=== PATIENT | female | born 1995 | race Caucasian/White ===

== ENCOUNTER 2023-01-05 12:39 | Emergency (ER) | payer BC, SELFPAY | END 2023-01-05 13:39 | disposition left against medical advice (07) | LOC: CSHERS 12:39 | DX: Z53.21 Procedure and treatment not carried out due to patient leaving prior to being seen by health care provider (principal) ==

== ENCOUNTER 2023-12-28 12:23 | Day surgery (SDC) | payer BC ==
[2023-12-28] MEDS ORDERED: hydrALAZINE 20 MG/ML VIAL SLOW IVP PRN (13:23)
== END 2023-12-28 14:30 | disposition home or self-care (01) ==
LOC: CSHLD/OP 12:23
PROVIDERS: ATTEND Obstetrics & Gynecology
DX: O36.8130 Decreased fetal movements, third trimester, not applicable or unspecified (principal); Z3A.35 35 weeks gestation of pregnancy; Z79.899 Other long term (current) drug therapy; Z98.890 Other specified postprocedural states
CPT/HCPCS: 76819; 99282

== ENCOUNTER 2024-01-24 05:09 | Inpatient (IN) | payer BC ==
[2024-01-24 06:55] VITALS: BMI 32.3
[2024-01-24] MEDS ORDERED: HYDROcodone/Acetaminophen 5/325 mg Tablet PO PRN ×4 (07:00→16:35)
[2024-01-24] MEDS ORDERED: hydrALAZINE 20 MG/ML VIAL SLOW IVP PRN ×2 (07:00→16:35)
[2024-01-24] MEDS ORDERED: Ondansetron PF 4 MG/2 ML Vial IVP PRN ×3 (07:00→16:35)
[2024-01-24] MEDS ORDERED: Promethazine HCl 25 MG/ML VIAL IM PRN ×2 (07:00→10:35)
[2024-01-24] MEDS ORDERED: Lidocaine 1% (PF) 30 ML VIAL SC PRN (07:00)
[2024-01-24] MEDS ORDERED: Oxytocin 30 units/NS 500 ML 500 ML IV SCH ×3 (07:00→16:35)
[2024-01-24] MEDS ORDERED: Ibuprofen 800 MG TAB PO PRN (07:00)
[2024-01-24] MEDS: Oxytocin 30 units/NS 500 ML 500 ML IV SCH (08:03)
[2024-01-24] MEDS: Lactated Ringer's 1,000 ML IV SCH (08:03)
[2024-01-24 08:12] LABS: Hematocrit 30.9 % (34.9-44.5); Hemoglobin 10.1 g/dL (12.0-15.5); Mean Corpuscular HGB CONC 32.7 g/dL (32.0-36.0); Mean Corpuscular Hemoglobin 27.7 pg (27.0-33.0); Mean Corpuscular Volume 84.7 fL (81.6-98.3); Mean Platelet Volume 10.8 fL (7.4-10.4); Platelet Count 260 10x3/uL (150-450); RBC Distribution Width 13.1 % (11.5-14.5); Red Blood Cell (RBC) Count 3.65 10x6/uL (3.90-5.03); White Blood Cell (WBC) Count 9.9 10x3/uL (3.5-10.5)
[2024-01-24 08:43] LABS: HBsAg Index 0.21 S/CO (0-0.99); Hep B Surf Ag - L&D Non-Reactive S/CO (NonReactive)
[2024-01-24 08:45] LABS: Syphilis Antibody Nonreactive (Nonreactive); Syphilis Antibody Index 0.07 S/CO (<1.00 Non-Reactive)
[2024-01-24] MEDS: Penicillin G Potassium 5 MILL.UNITS in Sodium Chloride 0.9% 100 ML IVPB SCH (09:18)
[2024-01-24] MEDS ORDERED: diphenhydrAMINE 50 MG/ML VIAL IVP PRN (10:35)
[2024-01-24] MEDS ORDERED: Naloxone HCl 0.4 mg/ml Vial IVP PRN ×2 (10:35)
[2024-01-24] MEDS ORDERED: Lactated Ringer's 500 ML IV PRN (10:35)
[2024-01-24] MEDS ORDERED: Moisturizing Cream (Eucerin) 113 GM JAR TOP PRN (10:35)
[2024-01-24] MEDS ORDERED: Acetaminophen 325 MG TAB PO PRN (10:35)
[2024-01-24] MEDS ORDERED: ePHEDrine Sulfate 50 MG/10 ML VIAL SLOW IVP PRN (10:35)
[2024-01-24] MEDS ORDERED: Communication Order-Pharmacy FS SCH (10:45)
[2024-01-24] MEDS ORDERED: fentaNYL 2 mcg/Ropivacaine 0.2% Epidural 100 ML CADD EPIDURAL SCH (10:45)
[2024-01-24] MEDS ORDERED: Penicillin G 2.5 MILL.units 2.5 MILL.UNITS in Premix 1 BAG IVPB SCH (11:00)
[2024-01-24] MEDS ORDERED: Lanolin Ointment 7 GM TUBE TOP PRN (16:35)
[2024-01-24] MEDS ORDERED: Milk Of Magnesia 30 ML UDCUP PO PRN (16:35)
[2024-01-24] MEDS ORDERED: Bisacodyl 10 MG SUPP PR PRN (16:35)
[2024-01-24] MEDS ORDERED: diphenhydrAMINE 25 MG CAP PO PRN (16:35)
[2024-01-24] MEDS ORDERED: Preparation H Ointment 28 GM TUBE PR PRN (16:35)
[2024-01-24] MEDS: fentaNYL/Ropivacaine Epidural 100 ML ONE (16:37)
[2024-01-24] MEDS: Ferrous Sulfate 325 MG TAB PO SCH (17:54)
[2024-01-24] MEDS: Boostrix 0.5 ML (Tdap) VIAL (>/=7 yrs of age) IM ONE (17:54)
[2024-01-24] MEDS: Docusate 100 MG CAP PO SCH (20:37)
[2024-01-24] MEDS: Ibuprofen 800 MG TAB PO SCH (20:37)
[2024-01-24] MEDS: Benzocaine-Menthol 82.5 ML CAN TOP PRN (20:39)
[2024-01-25] MEDS: Prenatal Vitamin 1 TAB PO SCH (08:02)
[2024-01-25 11:07] VITALS: BP 133/90; TEMP 97.9
== END 2024-01-25 13:30 | disposition home or self-care (01) | DRG 807 ==
LOC: CSHLD 05:09 → CSHPP 16:57
PROVIDERS: ADMIT Obstetrics & Gynecology; ATTEND Obstetrics & Gynecology
PROC: 10E0XZZ Delivery of Products of Conception, External Approach (ICD-10-PCS; principal; 2024-01-24)
PROC: 0HQ9XZZ Repair Perineum Skin, External Approach (ICD-10-PCS; 2024-01-24)
DX: O99.824 Streptococcus B carrier state complicating childbirth (principal); Z37.0 Single live birth; Z3A.39 39 weeks gestation of pregnancy; O70.0 First degree perineal laceration during delivery
CPT/HCPCS: 51702; 85027; 86780; 86850; 86900; 86901; 87340; J2540; J2590; J7120